=== PATIENT | female | born 1990 | race Caucasian/White ===

== ENCOUNTER 2016-06-08 18:17 | Emergency (ER) | payer OTHER, BC ==
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
== END 2016-06-08 19:40 | disposition home or self-care (01) ==
LOC: CFTX 18:17
DX: S46.912A Strain of unspecified muscle, fascia and tendon at shoulder and upper arm level, left arm, initial encounter (principal); S13.4XXA Sprain of ligaments of cervical spine, initial encounter; S23.3XXA Sprain of ligaments of thoracic spine, initial encounter; V43.52XA Car driver injured in collision with other type car in traffic accident, initial encounter; Y92.410 Unspecified street and highway as the place of occurrence of the external cause
CPT/HCPCS: 71101; 72040; 72072; 73030; 73110; 84703; 99284